=== PATIENT | male | born 1980 | race Caucasian/White ===

== ENCOUNTER → 2016-08-02 | Outpatient (CLI) | payer BC ==
[2016-08-02 17:31] LABS: BASOPHILS # (AUTO) 0.01 10*3/UL; BASOPHILS % (AUTO) 0.2 % (0-1); EOSINOPHILS # (AUTO) 0.08 10*3/UL; EOSINOPHILS % (AUTO) 1.8 % (0-8); HEMATOCRIT 41.7 % (42.0-52.0); HEMOGLOBIN 13.5 g/dL (14.0-18.0); LYMPHOCYTES # (AUTO) 1.53 10*3/uL; MEAN CORPUSCULAR HEMOGLOBIN 27.2 PG (27-31); MEAN CORPUSCULAR HGB CONC 32.4 g/dL (33-37); MEAN CORPUSCULAR VOLUME 83.9 FL (80-90); MEAN PLATELET VOLUME 10.3 FL (7.4-12.2); MONOCYTES # (AUTO) 0.38 10*3/UL (0.3-0.8); MONOCYTES % (AUTO) 8.7 % (5-15); NEUTROPHILS # (AUTO) 2.37 10*3/UL; NEUTROPHILS % (AUTO) 54.3 % (50-80); RED BLOOD COUNT 4.97 10^6/uL (4.70-6.10)
[2016-08-02 17:34] LABS: BILIRUBIN,URINE NEGATIVE (NEG); COLOR,URINE YELLOW; NITRATE,URINE NEGATIVE (NEG); OCCULT BLOOD,URINE NEGATIVE (NEG); PH,URINE 5.5 (5.0-8.5); PROTEIN,URINE NEGATIVE (NEG); UROBILINOGEN,URINE 0.2 mg/dL (0.2)
[2016-08-02 17:48] LABS: CLARITY,URINE CLEAR (CLEAR); GLUCOSE, URINE (UA) >=1000 mg/dL (NEG); HEMOGLOBIN A1C 7.01 % (4.2-6.0)
[2016-08-02 17:49] LABS: PLATELET MORPHOLOGY COMMENT NORMAL MORPHOLOGY (NORM); RBC MORPHOLOGY COMMENT NORMAL MORPHOLOGY (NORM); WBC MORPHOLOGY COMMENT NORMAL MORPHOLOGY (NORM)
[2016-08-02 17:51] LABS: URINE SAMPLE TYPE CLEAN CATCH URINE
[2016-08-02 17:52] LABS: CREATININE, URINE 71.8 MG/DL (15-500)
[2016-08-02 18:32] LABS: BLOOD UREA NITROGEN 17 mg/dL (7-22); CALCIUM 9.9 mg/dL (8.7-10.7); CHOL/HDL RATIO 6.04 RATIO (0-4.0); EST GLOMERULAR FILTRATION > 60 (>60 ml/min/1.73m(2)); HDL CHOLESTEROL 23 mg/dL (40-150); SERUM ALBUMIN 4.7 g/dL (3.5-4.8); SERUM CHOLESTEROL 139 mg/dL (120-200); URIC ACID 5.9 mg/dl (3.8-8.5)
== END ==
LOC: MOB LAB 16:35
DX: E11.9 Type 2 diabetes mellitus without complications (principal); M10.9 Gout, unspecified; E78.2 Mixed hyperlipidemia; J45.909 Unspecified asthma, uncomplicated; E66.9 Obesity, unspecified; E55.9 Vitamin D deficiency, unspecified
CPT/HCPCS: 36415; 80053; 80061; 81001; 82043; 82306; 83036; 84443; 84550; 85025

== ENCOUNTER → 2016-12-17 | Outpatient (CLI) | payer BC ==
[2016-12-17 12:17] LABS: BLOOD UREA NITROGEN 17 mg/dL (7-22); BUN/CREATININE RATIO 18.88 (6-20); CALCIUM 10.4 mg/dL (8.7-10.7); EST GLOMERULAR FILTRATION > 60 (>60 ml/min/1.73m(2))
--- NOTE | 2016-12-17 12:30 | EKG ---
[address] [address] Measurements Intervals [place] Rate: 68 P: 20 MN: 142 QRS: 66 QRSD: 103 T: 38 QT: 373 QTc: 390 Interpretive Statements SINUS RHYTHM Compared to ECG 08/23/2013 15:25:28 Sinus tachycardia no longer present Electronically Signed On 12-20-16 08:35:52 MDT by Jai Reed MD [email or web address]
== END ==
LOC: EKG 11:43
PROVIDERS: ATTEND Orthopaedic Surgery
DX: Z01.812 Encounter for preprocedural laboratory examination (principal); Z01.810 Encounter for preprocedural cardiovascular examination; G56.21 Lesion of ulnar nerve, right upper limb; E11.9 Type 2 diabetes mellitus without complications
CPT/HCPCS: 36415; 80048; 93005; 93010